=== PATIENT | male | born 2000 | race Asian ===

== ENCOUNTER 2023-01-12 13:25 | Emergency (ER) | payer OTHER ==
[~2023-01-12] VITALS: Ht 182.9 cm; Wt 92.0 kg
[2023-01-12 13:27] VITALS: BP 120/70; PULSE 72; RESP 16; TEMP 98.2
== END 2023-01-12 15:17 | disposition left against medical advice (07) ==
LOC: EMS 13:29
DX: M79.631 Pain in right forearm (principal); Z53.21 Procedure and treatment not carried out due to patient leaving prior to being seen by health care provider
CPT/HCPCS: 99281; Z7502